=== PATIENT | female | born 1960 | race Hispanic/Latino ===

== ENCOUNTER 2021-01-27 08:40 | Outpatient (CLI) | payer BC | END 2021-01-27 08:41 | disposition home or self-care (01) | LOC: CSHMAMMO 08:40 | PROVIDERS: ATTEND Internal Medicine | DX: Z12.31 Encounter for screening mammogram for malignant neoplasm of breast (principal) | CPT/HCPCS: 77063; 77067 ==

== ENCOUNTER 2021-07-02 12:51 | Outpatient (CLI) | payer BC | END 2021-07-02 12:52 | disposition home or self-care (01) | LOC: CSHCT 12:51 | PROVIDERS: ATTEND Internal Medicine | DX: R06.00 Dyspnea, unspecified (principal); J18.9 Pneumonia, unspecified organism; R63.4 Abnormal weight loss; R04.2 Hemoptysis; N28.9 Disorder of kidney and ureter, unspecified; C78.7 Secondary malignant neoplasm of liver and intrahepatic bile duct; C78.00 Secondary malignant neoplasm of unspecified lung; C78.1 Secondary malignant neoplasm of mediastinum | CPT/HCPCS: 71270; 82565 ==